=== PATIENT | male | born 1970 ===

== ENCOUNTER 2016-09-15 16:27 | Emergency (ER) | payer MEDICARE, MEDICAID ==
[~2016-09-15 16:27] MED LIST: BACL10TA PO; HYDR-4003 PO; LISI2.5T PO; PROC5TAB PO
--- NOTE | 2016-09-15 16:39 | ED.REPORT ---
HPI-Stroke / CVA Sep 15, 2016 ED Provider: Gregory Wilde MD 45 year old male with a history of abnormal MR findings suggestive of Chiari I malformation, Suspected acute stroke 08/22/16, Hypertension, Hyperlipidemia, Nicotine Dependence, Prediabetes and not anticoagulated who presents to the ED due to increasing weakness since 1300. At 1300 the patient was at baseline. He then noted increasing weakness to his R arm and R leg. At 1500, the patient noticed severe R sided facial droop and severe RUE and RLU weakness. Additionally, he complains of headache with radiation to the neck, slurred speech and "it feels like I am choking on my tongue". Pt was admitted for the same symptoms. He was hospitalized for 4 days and his condition improved throughout the stay. Since he was discharged, he has been at baseline with mild R sided hemiparesis until today. Nursing Notes Stated Complaint: STROKE SYMPTOMS Nursing Notes Reviewed: Yes Allergies: Coded Allergies: NSAIDS (Non-Steroidal Anti-Inflamma (Verified Allergy, Severe, ANAPHYLAXIS , 08/25/16) HAS TAKEN ASPIRIN BUT IT GIVES HIM HIVES. (IF NEEDED FOR DC HE WOULD PUT UP WITH THE HIVES RATHER THAN OF A DC HE STATES). strawberry (Unverified Allergy, Severe, Anaphylaxis, 08/25/16) ibuprofen (Verified Adverse Reaction, Severe, Nausea, 08/25/16) ketorolac (Verified Adverse Reaction, Severe, FLUSHING,PRICKLY SENSATION, ANAPHYLAXIS, 08/25/16) Scheduled Baclofen (Baclofen) 10 Mg Tablet 10 MG PO TID Lisinopril (Lisinopril) 2.5 Mg Tablet 2.5 MG PO DAILY Scheduled PRN Hydrocodone-Acetaminophen 5-325 mg (Hydrocodone-Acetaminophen 5-325 mg) 1 Each Tablet 1 TABLET PO Q4H PRN PRN For Pain Prochlorperazine Maleate (Prochlorperazine) 5 Mg Tablet 5 MG PO Q8 PRN PRN For Nausea/Vomiting General Time Seen by Provider: 16:19 Chief Complaint Weakness Right-sided, Face right, Arm right, Leg right Hx Obtained From: Patient Arrived By: Wheelchair Time last known well 1300 Sudden in Onset?: No Symptom Duration: Since onset Progression Since Onset: Rapidly worsening Severity: Current: No pain currently Associated with: Reports: Headache, Speech problem, Denies: Visual disturbance, Vomiting Pertinent Negative: Relieved by nothing Recent Healthcare: Recent hospitalization Similar Sx Previous: Yes Risk Factors )( TPA Administration/Criteria Stroke Thrombolytic Therapy : TPA Considered: Yes Neurologist Contacted: Yes (telestroke) Disc Risk/Benefit/Alternatives: Yes Consent Obtained: Patient Intensive Monitoring Performed: Yes TPA Administered Intravenously: Yes NIH Stroke Scale Level of Consciousness: Alert and responsive (0) Ask Month & Age: Both questions right (0) Open/Close Eyes/Hand Slice Cutting Machine Operator: Performs both tasks (0) Horizontal EO Movements: None (0) Visual Crum: Partial hemianopsia (1) Facial Palsy: Partial paral, lower (2) (R sided) Right Arm Motor Drift (10s): Drift, hits bed (2) Left Arm Motor Drift (10s): No drift 10 sec (0) Right Leg Motor Drift (5s): Drift, hits bed (2) Left Leg Motor Drift (5s): No drift 5 sec (0) Limb Ataxia FNF/Heel-Escalante: No ataxia (0) Sensation (Arms/Legs/Face): Pinprick less sharp (1) (R sided) Language Aphasia: Loss fluency ID matls (1) Dysarthria: Slurring intelligible (1) Extinction/Inattention: Inatt visual/tactile (1) (MALIKA, JEANIE) NIHSS Score: 11 Time NIHSS Performed: 16:34 Date NIHSS Performed: Sep 15, 2016 )( CVA Risk Stratification Hyperlipidemia Hypertension Smoking Risk factors reviewed Past Medical History Past Medical History Notes: PCP: Dr. Del Rio Past Medical History Chronic pain Chronic opiate use Kidney stone. Depression/PTSD Post-surgical urinary retention. Angina MR findings suggestive of Chiari I malformation Suspected acute stroke 08/22/16 Hypertension Hyperlipidemia Nicotine Dependence Prediabetes Reports: Hypertension Past Surgical History Left inguinal hernia repair Left vestibular repair Reports: Appendectomy, Cholecystectomy Family History Noncontributory Smoking History Current Every Day Smoker Social History Lives locally with a his partner Alcohol Use: Denies alcohol use Drug Use: Denies drug use Other Social History: Local resident Ambulatory Status Independent Review of Systems Constitutional: Denies: Fever Respiratory: Denies: Shortness of breath Cardiovascular: Denies: Chest pain GI: Denies: Abdominal pain, Diarrhea Musculoskeletal: Denies: Back pain, Extremity pain Skin: Denies Diaphoresis, Denies Rash Neurologic: Reports: Focal weakness, Headache, Slurred speech, Denies: Change LOC, Confusion, Numbness, Unable to speak, Vision change Complete sys rev & neg: except as marked. Physical Exam Initial Vital Signs Vital Signs (First) Date Time Temp Pulse Resp B/P Pulse Ox O2 Delivery O2 Flow Rate FiO2 09/15/16 20:37 72 14 122/63 98 Room Air Initial VS: Reviewed ENT: Mucous membranes moist, Conjunctiva normal, No scleral icterus Abdomen / GI: Soft, Non-tender Skin: Warm, Dry Psychiatric: Mood/affect normal, Behavior normal General/Constitutional: Awake, Alert Head / Eyes: Atraumatic, Normocephalic, PERRL Neck: Supple, Full range of motion Respiratory / Chest: Breath sounds NL, Breath sounds = bilat, No respiratory distress, No rales, No rhonchi, No wheezing Cardiovascular: Heart rate NL, Regular rhythm, Heart sounds NL, No murmurs, Peripheral circulation NL Neurologic: Oriented X3 See NIH scale Interpretation & Diagnostics Interpretation & Diagnostics: CT angio of brain and neck: IMPRESSION: 1. No acute intracranial process. 2. No areas of hemodynamically significant stenosis, vascular occlusion or aneurysmal dilation within the anterior circulation. 3. No areas of hemodynamically significant stenosis, vascular occlusion or aneurysmal dilation within the posterior circulation. 4. No areas of hemodynamically significant stenosis, vascular occlusion or aneurysmal dilation within the neck vasculature. Dictated by: Terra Graham M.D. on 09/15/2016 at 19:40 Lab Results Interpretation Result Diagram: 09/15/16 1655 09/15/16 1655 Test 09/15/16 16:55 White Blood Count 6.8th/mm3 (3.8-10.1) Red Blood Count 4.65mil/mm3 (4.40-5.80) Hemoglobin 14.0g/dL (13.8-17.2) Hematocrit 40.6% (41.0-50.0) Mean Corpuscular Volume 87.3fL (81-100) Mean Corpuscular Hemoglobin 30.1pg (27.0-35.0) Mean Corpuscular Hemoglobin Concent 34.5% (32.0-37.0) Red Cell Distribution Width 12.6% (12.3-15.4) Platelet Count 355bil/L (150-400) Neutrophils (%) (Auto) 43.5% (40-74) Lymphocytes (%) (Auto) 46.4% (14-46) Monocytes (%) (Auto) 5.4% (4-12) Eosinophils (%) (Auto) 3.5% (0-5) Basophils (%) (Auto) 0.6% (0-3) Prothrombin Time 9.9sec (8.1-12.5) Prothromb Time International Ratio 0.93ratio Activated Partial Thromboplast Time 27.3sec (22.8-33.0) Sodium Level 140mEq/L (134-144) Potassium Level 4.2mEq/L (3.5-5.2) Chloride Level 105mEq/L (97-108) Carbon Dioxide Level 22mmol/L (18-29) Blood Urea Nitrogen 10mg/dL (6-24) Creatinine 1.09mg/dL (0.76-1.27) Estimat Glomerular Filtration Rate 78mL/min (>59) Glucose Level 113mg/dL (60-99) Calcium Level 8.8mg/dL (8.5-10.1) Total Bilirubin 0.3mg/dL (0.0-1.2) Aspartate Amino Transf (AST/SGOT) 19U/L (0-50) Alanine Aminotransferase (ALT/SGPT) 18U/L (0-44) Alkaline Phosphatase 66U/L (25-150) Troponin T < 0.010ug/L (0.0-0.011) Total Protein 7.5g/dL (6.4-8.4) Albumin 4.0g/dL (3.4-5.0) Hold Holder Top Tube Received (Received) General Lab Results Interp 1: Labs reviewed ECG Interpretation Time: 16:43 Interpreted by: ED physician Normal ECG Interpretation: Normal rate (86), Normal sinus rhythm, No acute ischemic changes Re-Eval/Medical Decision Med Decision/Clinical Course 45-year-old male history of recent suspected CVA one month ago with residual right-sided deficits presenting with worsening right-sided deficits and left facial droop that started at 1 PM this afternoon. Code stroke called immediately on arrival. CT head normal. Glucose 100. NIH stroke scale was 10. [facility] neurologist consulted who recommended TPA. Patient was given TPA with no improvement in symptoms. CT angiogram brain was ordered and there was significant delay in getting this performed due to the lab support service tech not able to see the order and we were unable to reach them. CT angiogram brain with no acute pathology. Patient was transferred to [facility] care of Dr. Fay via ALS. Re-Evaluation/Progress #1: Time of Eval: 18:12 Re-Evaluation/Progress Note: Updated pt of labs, ECG results. Awaiting imaging. Recommended transfer to [facility]. Pt understands and agrees with plan. All questions addressed. Re-Evaluation/Progress #2: Time of Eval: 19:47 Re-Evaluation/Progress Note: CT angio brain was ordered, but CT was unable to see request. They were paged 3 times. Finally contacted, but there was significant delay in CT time. Updated pt of CTA results. Pt being transferred. Consultation : Consulted With: Neurology Call Returned at: 16:50 Note: Consulted with Dr. Candido Fay who will evaluate the patient via Telestroke. 1704- Agrees with plan for TPA. Counseled Regarding: Diagnosis, Lab results, Need for transfer Patient Discharge & Departure Impression: Primary Impression: CVA (cerebral vascular accident) CVA mechanism: unspecified Qualified Code: I63.9 - Cerebral infarction, unspecified Disposition: ADMITTED TO HOSPITAL Call returned time ([id number]) Receiving Hospital: Dr. Candido Fay at [facility]. Transfer Accepted: Yes Transfer Accepted at: 17:43 Transfer Reason: Higher level of care Spoke with: Attending physician Patient Status: Stable for transfer Patient Informed: Yes Discharge Condition All VS Reviewed: Yes Referrals: NOPCP (PCP) Crit Care Except Billable Proc Time Spent: 105-134 minutes Services Performed: Patient management by me, Time spent at bedside, Reviewing test results, Reviewing imaging, Discussing patient care, Documentation in record Scribe Attestation Portions of this note were transcribed by Aviva Danielson. I, (Dr. Wilde) personally performed the history, physical exam and medical decision-making; I reviewed and confirmed the accuracy of the information in the transcribed note. Signed by: Aviva Danielson. 09/15/2016, 194 Gregory Wilde MD Sep 15, 2016 16:39 Aviva Danielson Sep 15, 2016 16:44
--- NOTE | 2016-09-15 16:42 | DRSVH ---
CORRECTED MR#, ACCOUNT, AND ACCESSION/PLACER NUMBER ON 09/16/16 PROCEDURE: CT BRAIN (TPA) ([id number]) INDICATIONS: Stroke TECHNIQUE: Noncontrast 4.5 mm thick angled axial sections acquired from the foramen magnum to the vertex, with c oronal reformats. COMPARISON: None. FINDINGS: Image quality: Excellent. CSF spaces: Basal cisterns are patent. No extra-axial fluid collections. The ventricles are symmet erika in size and shape. Brain: No intracranial bleeds or masses. There is cerebral volume loss for age, with resultant vent ricular and sulcal prominence. There are periventricular and deep white matter chronic small vessel ischemic changes. There is intracranial internal carotid artery atherosclerosis. Skull and face: Calvarium and visualized facial bones appear intact, without suspicious lesions. Sinuses: Visualized sinuses demonstrate prominent left-sided ethmoid and maxillary sinus mucosal thi ckening. IMPRESSION: 1. No acute intracranial process. 2. Mild atrophy and chronic microvascular ischemic changes. The findings were discussed with Dr. Gregory Wilde on 09/15/16 at 4:40pm. This study fulfills neurological imaging criteria for inclusion or exclusion of acute stroke therapie s based on available published neurological guidelines. Dictated by: Terra Graham M.D. on 09/15/2016 at 16:41 Approved by: Terra Graham M.D. on 09/15/2016 at 16:41
[2016-09-15 17:04] LABS: BASOPHILS % (AUTO) 0.6 % (0-3); EOSINOPHILS % (AUTO) 3.5 % (0-5); MONOCYTES % (AUTO) 5.4 % (4-12); Mean Corpuscular Hemoglobin 30.1 pg (27.0-35.0); Mean Corpuscular Volume 87.3 fL (81-100); NEUTROPHILS % (AUTO) 43.5 % (40-74); Platelet Count 355 bil/L (150-400)
[2016-09-15] MEDS ORDERED: Alteplase Dose Per Pharmacist XX ONE (17:05)
[2016-09-15] MEDS: ALTEPLASE IV ONE ×2 (17:05→18:12)
[2016-09-15 17:24] LABS: INR 0.93 ratio
[2016-09-15 18:05] LABS: TROPONIN T < 0.010 ug/L (0.0-0.011)
[2016-09-15] MEDS ORDERED: Alteplase (No Charge) 1 mg/mL Syringe IV ONE (18:05)
--- NOTE | 2016-09-15 19:43 | DRSVH ---
PROCEDURE: CT ANGIO BRAIN NECK TPA INDICATIONS: POSSIBLE STROKE. TECHNIQUE: Pre-contrast 4.5 mm thick sections acquired from the foramen magnum to the vertex. After the adminis tration of intravenous contrast, 1 mm thick sections acquired from the aortic arch through the [place] of [place]. Post-contrast 4.5 mm thick sections then re-acquired from the foramen magnum to the vert ex. 3-dimensional tltkzck-gpshkjoyz-qmpsyuihgl (MIP) and/or volume rendering reformats were acquired of the central intracranial vasculature and neck separately. For radiation dose reduction, the foll owing was used: automated exposure control, adjustment of mA and/or kV according to patient size. COMPARISON: [facility], MR, STROKE PROTOCOL, 06/23/2016, 19:43. [facility], CT, CT ANGIO BRAIN AND NECK, 08/24/2016, 17:53. FINDINGS: Image quality: Excellent. BRAIN: CSF spaces: Ventricles are normal in size and shape. Basal cisterns are patent. No extra-axial flu id collections. Brain: No midline shift. No intracranial bleeds or masses. Hernandez-white matter interface appears int act. Skull and face: Calvarium and facial bones appear intact, without suspicious lesions. Orbits appear normal. Sinuses: Sinuses demonstrate near complete occlusion of the left ethmoid and left maxillary sinuses. HEAD CT ANGIOGRAPHY: Anterior circulation: Intracranial internal carotid arteries are normal in size and flow. The flow within the paired anterior cerebral arteries is normal and symmetric. The flow within the middle cer ebral arteries is normal and symmetric. The anterior communicating artery is seen. No aneurysms are seen. Posterior circulation: Visualized portions of the vertebral arteries demonstrate normal caliber, and join to form a normal appearing basilar artery. Flow within the posterior cerebral arteries is norm al and symmetric. No aneurysms are seen. NECK CT ANGIOGRAPHY: Carotid system: The great vessels demonstrate bovine anatomy as they arise from the aortic arch, con sistent with congenital variation. The origins of the common carotid arteries appear patent. The co mmon carotid arteries demonstrate normal caliber and courses. The bifurcation regions are both widel y patent. The internal carotid arteries demonstrate normal calibers and courses. Posterior circulation: The origins of the vertebral arteries both appear widely patent. The more tobar perior extracranial portions of both vertebral arteries also demonstrate normal courses and calibers. They join to form a normal appearing basilar artery. Soft tissues: Visualized neck soft tissues demonstrate no suspicious abnormalities. Bones: No suspicious bony lesions. Visualized cervical spine appears normally aligned. IMPRESSION: 1. No acute intracranial process. 2. No areas of hemodynamically significant stenosis, vascular occlusion or aneurysmal dilation within the anterior circulation. 3. No areas of hemodynamically significant stenosis, vascular occlusion or aneurysmal dilation within the posterior circulation. 4. No areas of hemodynamically significant stenosis, vascular occlusion or aneurysmal dilation within the neck vasculature. Dictated by: Terra Graham M.D. on 09/15/2016 at 19:40 Approved by: Terra Graham M.D. on 09/15/2016 at 19:40
[2016-09-15 20:37] VITALS: BP 122/63; PULSE 72; RESP 14; O2SAT 98
[2016-11-05] MEDS ORDERED: OXYC-466 PO (18:17)
[2016-11-05] MEDS ORDERED: LISI40TA PO (18:17)
[2016-11-05] MEDS ORDERED: HYDR-4003 PO (18:17)
[2016-11-05] MEDS ORDERED: DIAZ10TA PO (18:17)
== END 2016-09-15 20:45 | disposition short-term general hospital (02) ==
LOC: SED 16:27
DX: I63.9 Cerebral infarction, unspecified (principal); I10 Essential (primary) hypertension; R73.09 Other abnormal glucose; E78.5 Hyperlipidemia, unspecified; Z79.891 Long term (current) use of opiate analgesic; F17.200 Nicotine dependence, unspecified, uncomplicated; Z87.442 Personal history of urinary calculi; Z88.6 Allergy status to analgesic agent; Z91.018 Allergy to other foods
CPT/HCPCS: 36415; 37195; 70450; 70496; 70498; 80053; 84484; 85025; 85610; 85730; 93005; 99291; 99292; J2997; Q9967

== ENCOUNTER 2016-11-09 10:45 | Day surgery (SDC) | payer MEDICARE, MEDICAID ==
[~2016-11-09] VITALS: Ht 177.8 cm; Wt 112.5 kg
[~2016-11-09 10:45] MED LIST changes: -BACL10TA PO; +Bacitracin 50,000 unit Inj IRRIGATION SCH; +CeFAZolin 2 Gm/50 mL D5W IV Premix IV ONE; +DIAZ10TA PO; -LISI2.5T PO; +LISI40TA PO; +Lactated Ringer's 1,000 ML IV SCH; +OXYC-466 PO; -PROC5TAB PO
[2016-11-09 11:19] VITALS: BP 144/94; PULSE 80; RESP 18; O2SAT 98
[2016-11-09] MEDS ORDERED: Ondansetron 2 mg/mL 2 mL Inj IVPUSH ONE (11:25)
[2016-11-09] MEDS ORDERED: CeFAZolin Inj 2 gm / 50mL D5W IV ONE (11:46)
--- NOTE | 2016-11-09 14:34 | PROG NOTE ---
[address] [address] PROGRESS NOTE PATIENT: VIOLETA BATISTA : 1970 MR#: [id number] ADMIT: 11/09/2016 JOB ID: [id number] DATE: 11/09/2016 SUBJECTIVE: The patient was scheduled for surgery today at C5-7 ACDF. He presented with cervical spondylosis, disk disease and cervical radiculopathy and myelopathy. This patient has a history of substance abuse including heroin and methamphetamines. He had a drug screen this morning just prior to surgery that was positive for amphetamine. He also had benzodiazepines but the patient does have a prescription for Valium. I was concerned about this patient having a methamphetamine addiction and spoke with the patient. He reported that although he is clean he believes that his significant other smokes methamphetamine in the house and that is how he had his exposure. However, the patient had a prior drug screen by his primary care provider from a week ago showing other evidence of substance abuse. The surgery was canceled and I am recommending that this patient seek help for his problems with drug addiction and that he have a clean screen prior to the scheduling of any surgery and he will return to his primary care provider. We also referring this patient urgently for followup at the [facility] because of issues with chronic pain control and addiction. He will need a team approach that cannot be provided at our critical [facility] hospital and I have [facility] His [facility] that was scheduled for today was canceled.
== END 2016-11-09 23:59 | disposition home or self-care (01) ==
LOC: SAS 10:45
PROVIDERS: ATTEND Neurological Surgery
DX: M54.12 Radiculopathy, cervical region (principal); F15.10 Other stimulant abuse, uncomplicated
CPT/HCPCS: G0480; J2405; J7120